=== PATIENT | female | born 1980 | race Caucasian/White ===

== ENCOUNTER → 2019-01-25 18:49 | Outpatient (CLI) | payer OTHER, SELFPAY | PROVIDERS: Visit Provider Physician Assistant | DX: N30.01 Acute cystitis with hematuria (principal) | CPT/HCPCS: 87086 ==

== ENCOUNTER → 2022-12-01 13:47 | Outpatient (CLI) | payer OTHER, SELFPAY | PROVIDERS: PCP Orthopaedic Surgery Foot and Ankle Surgery; Visit Provider Registered Nurse | DX: R30.0 Dysuria (principal) | CPT/HCPCS: 87077; 87086; 87186 ==

== ENCOUNTER → 2023-05-19 11:30 | Outpatient (CLI) | payer OTHER, SELFPAY ==
[2023-05-19 12:49] LABS: Influenza A - CEPHEID Flu A NEGATIVE (NEGATIVE); Influenza B - CEPHEID Flu B NEGATIVE (NEGATIVE); Respiratory Syncytial Virus Negative (Negative)
[2023-05-19 13:32] LABS: COVID-19 CEPHEID 4-PLEX PCR Negative (Negative)
== END ==
PROVIDERS: PCP Orthopaedic Surgery Foot and Ankle Surgery; Visit Provider Nurse Practitioner Family
DX: J06.9 Acute upper respiratory infection, unspecified (principal); J02.9 Acute pharyngitis, unspecified
CPT/HCPCS: 0241U; 87070

== ENCOUNTER 2024-04-27 08:41 | Emergency (ER) | payer OTHER, SELFPAY ==
[2024-04-27] VITALS (7 sets, daily range): BP systolic 116–129; BP diastolic 65–76; PULSE 67–81; RESP 14–30; TEMP 36.9–37.3; O2SAT 98–100; BMI 29.7
--- NOTE | 2024-04-27 08:48 | ED.GENADULT ---
HPI - General Adult General Chief complaint: Weakness Stated complaint: med reaction Time Seen by Provider: 04/27/24 08:42 History of Present Illness HPI narrative: 44-year-old woman history of depression, on hormone replacement therapy apparently was quite sleepy last night they went to bed around 9:00 a.m., apparently slept well when her went to check on her at 6:00 a.m. she seemed still more fatigued than usual. By 7:30 a.m. when he checked again she was concerning only fatigued to the point that she was unable to wake up enough to even carry on a conversation. He being came concerned enough that he brings her into the emergency department. He does bring in all of her medications which were reviewed. Both of them state that she has not taken any new medications, sleeping pills, alcohol has not been sick recently yesterday seemed like a normal day. Her notes that she had a significant drowsiness after Dilaudid with the previous hospital visit but otherwise has not had findings such as this. Patient can be roused is oriented to person time and place but does fall asleep again between sentences. She has in no obvious distress and has no localizing symptoms Related Data Home Medications Medication Instructions Recorded Confirmed atorvastatin PO 12/01/22 12/01/22 bupropion HCl PO 12/01/22 12/01/22 ergocalciferol (vitamin D2) 1,250 1,250 mcg PO 04/27/24 04/27/24 mcg (50,000 unit) capsule estradiol acetate 0.1 mg/24 hr vaginal [id number] 04/27/24 04/27/24 vaginal ring (Femring) flash glucose sensor (FreeStyle #1 ea 04/27/24 04/27/24 Rae 14 Day Sensor kit) progesterone micronized 100 mg 100 mg PO ONCE PM 04/27/24 04/27/24 capsule Previous Rx's Medication Instructions Recorded ondansetron 4 mg disintegrating 4 mg PO Q6-8H PRN nausea and 04/05/22 tablet vomiting #14 tabs Allergies Allergy/AdvReac Type Severity Reaction Status Date / Time hydromorphone [From Dilaudid] Allergy Severe quit Verified 04/27/24 09:03 breathing gatifloxacin [From Tequin] Allergy Intermediate bumps all Verified 04/27/24 09:03 over itchy Review of Systems Review of Systems Narrative: Pertinent positive and negative findings as per HPI Patient History Medical History Acne (~1993) Allergies (~2004) Anxiety (~2004) Migraines (~1999) Chicken pox (~1988) Painful menstrual periods (~1995) Heavy menstrual period (~2013) Endometriosis (~2013) Frequent UTI (~2004) Ataxia telangiectasia (SUMMER) (~1981) Hyperhidrosis (~1981) Hyperthyroidism (~2018) Surgical History Anesthesia History of dilation and curettage (~07/2015) History of surgery (~01/2018) History of removal of breast implant (~04/2017) History of breast implant (~09/2016) History of bilateral mastectomy (~04/2016) Family History Mother Diabetes mellitus Hyperlipidemia Mental health problem Grandfather Cancer Diabetes mellitus Grandmother Diabetes mellitus History of heart disease Mental health problem Alzheimer's disease Social History Smoking Status: Never smoker Smoking Status: Never smoker Exam Initial Vital Signs Initial Vital Signs: Vital Signs Pulse Rate 81 04/27/24 08:45 Respiratory Rate 30 H 04/27/24 08:45 Blood Pressure 129/76 04/27/24 08:45 Pulse Oximetry 98 04/27/24 08:45 General: Healthy appearing, in no acute distress. Extreme fatigue, falls asleep between sentences HEENT: Moist mucous membranes, normal sclera with reactive pupils, Respiratory: Lungs are clear to auscultation, no wheezing no rales no rhonchi. Full and symmetrical air movement Cardiac: Regular rate and rhythm no murmurs no bruits Abdomen: Soft, nontender, good bowel tones, no flank pain Skin: Face is slightly flushed remainder of skin is otherwise Warm and dry, no rashes Neurologic: Grossly neurologically intact with no obvious asymmetries or abnormalities beyond the exceptional fatigue Extremities: No trauma, well perfused Psych: Short sentences only as she falls asleep while she is speaking Course Orders Ordered: ED Orders 04/27/24 08:48 Respiratory Panel (Film Array) Stat 04/27/24 09:05 Complete Blood Count AUTO DIFF Stat Comprehensive Metabolic Panel Stat ETOH [Ethanol (ETOH)] Stat Lactate (Lactic Acid) Stat 04/27/24 09:07 CT head/brain wo con Stat 04/27/24 09:25 Urinalysis and Microscopic Stat urine tox [Urine Drug Screen, Rapid] Stat Discontinued Medications Sodium Chloride (Normal Saline 0.9%) 1,000 mls @ 1,000 mls/hr IV BOLUS ONE Stop: 04/27/24 09:51 Last Admin: 04/27/24 09:02 Dose: 1,000 mls/hr Documented By: VIOLETA Vital Signs Vital signs: Vital Signs - 8 hr 04/27/24 08:45 04/27/24 08:45 04/27/24 08:53 Temperature 99.2 F Pulse Rate 81 81 Respiratory Rate 30 H 18 Blood Pressure 129/76 129/76 Pulse Oximetry 98 100 Oxygen Delivery Method Room Air 04/27/24 09:00 04/27/24 09:00 04/27/24 09:24 Temperature Pulse Rate 74 73 Respiratory Rate 20 18 Blood Pressure 120/73 Pulse Oximetry 99 100 Oxygen Delivery Method 04/27/24 09:24 04/27/24 09:30 04/27/24 09:30 Temperature Pulse Rate 69 Respiratory Rate 15 Blood Pressure 128/69 127/68 Pulse Oximetry 100 Oxygen Delivery Method 04/27/24 10:00 04/27/24 10:00 Temperature Pulse Rate 68 Respiratory Rate 14 Blood Pressure 116/65 Pulse Oximetry 100 Oxygen Delivery Method Medical Decision Making Lab Data 04/27/24 09:05 04/27/24 09:05 Labs: Lab Results 04/27/24 04/27/24 04/27/24 Range/Units 08:48 09:05 09:25 WBC 11.0 (4.5-11.0) X10^3/uL RBC 4.25 (4.0-5.2) X10^6/uL Hgb 12.7 (12.0-16.0) g/dL Hct 37.2 (36-46) % MCV 87.7 (80-100) fL MCH 30.0 (26-34) PG MCHC 34.2 (30-36) % RDW 13.2 (11.6-14.8) % Plt Count 394 (150-400) X10^3/uL Neut % (Auto) 65.3 (50-75) % Lymph % (Auto) 28.5 (25-40) % [place] % (Auto) 4.8 (3-14) % Eos % (Auto) 0.9 L (2-4) % Baso % (Auto) 0.5 (0-2) % Neut # (Auto) 7200 H (0159-4459) /uL Lymph # (Auto) 3100 (7793-4131) /uL [place] # (Auto) 500 (0-900) /uL Eos # (Auto) 100 (0-450) /uL Baso # (Auto) 100 (0-100) /uL Sodium 137 (137-145) mmol/L Potassium 4.1 (3.4-5.1) mmol/L Chloride 107 (98-107) mmol/L Carbon Dioxide 22 (22-32) mmol/L BUN 14 (7-17) mg/dL Creatinine 0.96 (0.52-1.04) mg/dL Estimated GFR > 60 (>60) mL/min BUN/Creatinine Ratio 14.6 (6-22) Glucose 108 H (70-100) mg/dL Lactate 1.2 (0.7-2.1) mmol/L Calcium 9.5 (8.4-10.2) mg/dL Total Bilirubin 0.4 (0.2-1.3) mg/dL AST 26 (14-36) IU/L ALT 24 (<35) IU/L Alkaline Phosphatase 66 (38-126) U/L Total Protein 6.7 (6.3-8.2) g/dL Albumin 4.1 (3.5-5.0) g/dL Globulin 2.6 (1.7-4.1) g/dL Albumin/Globulin Ratio 1.6 (1.0-2.8) Urine Color Yellow Urine Appearance Clear Urine pH 7.0 (4.5-8.0) Ur Specific [place] <=1.005 (1.000-1.035) Urine Protein Negative (Negative) Urine Glucose (UA) Negative (Negative) g/dL Urine Ketones Negative (NEGATIVE) Urine Occult Blood 1+ H (Negative) Urine Nitrate Negative (Negative) Urine Bilirubin Negative (NEGATIVE) Urine Urobilinogen 0.2 (0.2) E.U./dL Ur Leukocyte Esterase Negative (NEGATIVE) Urine RBC 1-5/hpf (0-5/HPF) Urine WBC None seen (0-5/HPF) Ur Squamous Epith Cells None seen (0-5/HPF) Amorphous Sediment 1+ Urine Bacteria None seen (None) Ur Culture Indicated? Cult not indicated Vol Urine Centrifuged 10ml (spun) U Opiates 300ng/mL cut Negative (Negative) Ur Oxycodone Screen Negative (Negative) Urine Methadone Screen Negative (Negative) Ur Barbiturates Screen Negative (Negative) U Tricyclic Antidepress Negative (Negative) Ur Phencyclidine Scrn Negative (Negative) Ur Amphetamines Screen Negative (Negative) U Methamphetamines Scrn Negative (Negative) Ur MDMA Scrn (Ecstasy) Negative (Negative) U Benzodiazepines Scrn Negative (Negative) Urine Cocaine Screen Negative (Negative) U Marijuana (THC) Screen Negative (Negative) Urine Specific [place] (Normal) Ethyl Alcohol < 10 ( - 10) mg/dL Ur Creatinine (Normal) Chlamy pneumoniae PCR Not detected (Not Detect) Adenovirus (PCR) Not detected (Not Detect) B.parapertussis DNA PCR Not detected (Not Detecte) Coronavirus OC43 (PCR) Not detected (Not Detect) Coronavirus HKU1 (PCR) Not detected (Not Detect) Coronavirus 229E (PCR) Not detected (Not Detect) SARS-CoV-2 (PCR) Not detected (Not Detecte) Coronavirus NL63 (PCR) Not detected (Not Detect) Human Metapneumovir PCR Not detected (Not Detect) Influenza Type A (PCR) Not detected (Not Detect) Influenza Type B (PCR) Not detected (Not Detect) M. pneumoniae (PCR) Not detected (Not Detect) Parainfluenza 1 (PCR) Not detected (Not Detect) Parainfluenza 2 (PCR) Not detected (Not Detect) Parainfluenza 3 (PCR) Not detected (Not Detect) Parainfluenza 4 (PCR) Not detected (Not Detect) RSV (PCR) Not detected (Not Detect) Entero/Rhino (PCR) Not detected (Not Detect) 04/27/24 Range/Units 09:25 WBC (4.5-11.0) X10^3/uL RBC (4.0-5.2) X10^6/uL Hgb (12.0-16.0) g/dL Hct (36-46) % MCV (80-100) fL MCH (26-34) PG MCHC (30-36) % RDW (11.6-14.8) % Plt Count (150-400) X10^3/uL Neut % (Auto) (50-75) % Lymph % (Auto) (25-40) % [place] % (Auto) (3-14) % Eos % (Auto) (2-4) % Baso % (Auto) (0-2) % Neut # (Auto) (1540-8759) /uL Lymph # (Auto) (6990-6056) /uL [place] # (Auto) (0-900) /uL Eos # (Auto) (0-450) /uL Baso # (Auto) (0-100) /uL Sodium (137-145) mmol/L Potassium (3.4-5.1) mmol/L Chloride (98-107) mmol/L Carbon Dioxide (22-32) mmol/L BUN (7-17) mg/dL Creatinine (0.52-1.04) mg/dL Estimated GFR (>60) mL/min BUN/Creatinine Ratio (6-22) Glucose (70-100) mg/dL Lactate (0.7-2.1) mmol/L Calcium (8.4-10.2) mg/dL Total Bilirubin (0.2-1.3) mg/dL AST (14-36) IU/L ALT (<35) IU/L Alkaline Phosphatase (38-126) U/L Total Protein (6.3-8.2) g/dL Albumin (3.5-5.0) g/dL Globulin (1.7-4.1) g/dL Albumin/Globulin Ratio (1.0-2.8) Urine Color Urine Appearance Urine pH Normal (4.5-8.0) Ur Specific [place] (1.000-1.035) Urine Protein (Negative) Urine Glucose (UA) (Negative) g/dL Urine Ketones (NEGATIVE) Urine Occult Blood (Negative) Urine Nitrate (Negative) Urine Bilirubin (NEGATIVE) Urine Urobilinogen (0.2) E.U./dL Ur Leukocyte Esterase (NEGATIVE) Urine RBC (0-5/HPF) Urine WBC (0-5/HPF) Ur Squamous Epith Cells (0-5/HPF) Amorphous Sediment Urine Bacteria (None) Ur Culture Indicated? Vol Urine Centrifuged U Opiates 300ng/mL cut (Negative) Ur Oxycodone Screen (Negative) Urine Methadone Screen (Negative) Ur Barbiturates Screen (Negative) U Tricyclic Antidepress (Negative) Ur Phencyclidine Scrn (Negative) Ur Amphetamines Screen (Negative) U Methamphetamines Scrn (Negative) Ur MDMA Scrn (Ecstasy) (Negative) U Benzodiazepines Scrn (Negative) Urine Cocaine Screen (Negative) U Marijuana (THC) Screen (Negative) Urine Specific [place] Normal (Normal) Ethyl Alcohol ( - 10) mg/dL Ur Creatinine Normal (Normal) Chlamy pneumoniae PCR (Not Detect) Adenovirus (PCR) (Not Detect) B.parapertussis DNA PCR (Not Detecte) Coronavirus OC43 (PCR) (Not Detect) Coronavirus HKU1 (PCR) (Not Detect) Coronavirus 229E (PCR) (Not Detect) SARS-CoV-2 (PCR) (Not Detecte) Coronavirus NL63 (PCR) (Not Detect) Human Metapneumovir PCR (Not Detect) Influenza Type A (PCR) (Not Detect) Influenza Type B (PCR) (Not Detect) M. pneumoniae (PCR) (Not Detect) Parainfluenza 1 (PCR) (Not Detect) Parainfluenza 2 (PCR) (Not Detect) Parainfluenza 3 (PCR) (Not Detect) Parainfluenza 4 (PCR) (Not Detect) RSV (PCR) (Not Detect) Entero/Rhino (PCR) (Not Detect) Point of Care Testing Glucose POC 89 Point of care testing: Point of Care Testing Glucose POC 89 MDM Narrative Medical decision making narrative: CC: Unable to wake up Complicating co-morbidities: On hormone replacement therapy, history of hypothyroidism Data collected from: patient with the majority of information from her Differential considered: Adverse medication reaction, severe fatigue, infection, intracranial abnormality Exam documented above, pertinent findings include: Aside from fatigue, exam is entirely benign Lab Test results independently reviewed as above. Pertinent findings: CBC shows no significant abnormality Chemistries have no unusual findings Lactic is unremarkable Urinalysis shows minor occult blood no other findings Urine tox screen is negative Alcohol level is undetectable Respiratory panel shows free of detected viruses Imaging studies independently reviewed: CT of the head shows no acute abnormalities Discussion: Patient remains quite fatigued. Workup is entirely reassuring. No evidence of acute metabolic, infectious, neoplastic or other abnormalities that might explain her issues. CT scan of the head does not show subdural hematoma or other intracranial problems. Went over all of of her medications. She has been on progesterone 100 mg for at least a month. Recently got a new prescription filled from a mail-in pharmacy. Has taken 3 doses from the new prescription. Wondering if that may be part of the problem are there something different in this formulation of the progesterone. It is a generic version orange round capsule which is the description of with the pill should like light on the outside of the bottle. We will ask pharmacy for verification. With pill id programs I am not able to see this generic version of progesterone to confirm Discharge Plan Departure Patient Disposition: Home Clinical Impression: Excessive sleepiness Activity Restrictions/Additional Instructions: Thank you for coming in today I did not find a pathologic reason for why you are so sleepy this morning. I do not have good explanation for you but I am also not finding any evidence of infection, overwhelming infection, liver abnormalities kidney abnormalities there was no bleeding in your brain. Our pharmacy did confirm that the capsules that you have are a generic form of progesterone rather than some type of medication mix up Since this is the only change, I am going to suggest that you hold the progesterone for a week. It may be worse seeing if your primary doctor would give you a prescription that you can fill locally to try with a different formulation. We were able to confirm with the pharmacist that the pills that you have are in fact progesterone. If you find that you are getting worse or develop any new symptoms, please feel free to return to the emergency department for further evaluation. Prescriptions: No Action atorvastatin PO bupropion HCl PO ondansetron 4 mg tablet,disintegrating 4 mg PO Q6-8H PRN (Reason: nausea and vomiting) Qty: 14 0RF progesterone micronized 100 mg capsule 100 mg PO ONCE PM ergocalciferol (vitamin D2) 1,250 mcg (50,000 unit) capsule 1,250 mcg PO Femring 0.1 mg/24 hr ring vaginal [id number] (DME) FreeStyle Rae 14 Day Sensor Kit See Rx Instructions .ROUTE Q2W Qty: 1 Rx Instructions: As directed Referrals: Kendrick Oliveira MD [Primary Care Provider] - Stand Alone Forms: Patient Portal/API
[2024-04-27] MEDS: SODIUM CHLORIDE 0.9% 1,000 ML 1000 ML IV (09:02)
--- NOTE | 2024-04-27 09:07 | DI.CT.S_ITS ---
PROCEDURE: CT HEAD/BRAIN WO CON INDICATIONS: altered mental status TECHNIQUE: Noncontrast 4.5 mm thick angled axial sections acquired from the foramen magnum to the vertex, with coronal and sagittal reformats. For radiation dose reduction, the following was used: automated exposure control, adjustment of mA and/or kV according to patient size. COMPARISON: None. FINDINGS: Image quality: Diagnostic. CSF spaces: Basal cisterns are patent. No extra-axial fluid collections. Ventricles are normal in size and shape. Brain: No midline shift. No intracranial masses or hemorrhage. Arndt-white matter interface is normal. Skull and face: Calvarium and visualized facial bones are intact, without suspicious lesions. Sinuses: Visualized sinuses and mastoids are clear. IMPRESSION: No acute intracranial pathology. To the limits of this noncontrast study, no findings of intracranial masses or mass effect can be seen. Dictated by: Kody Templeton M.D. on 04/27/2024 at 8:40 Approved by: Kody Templeton M.D. on 04/27/2024 at 8:41
--- NOTE | 2024-04-27 09:16 | PC.NURSE ---
Increasing weakness; increasing lethargy starting last night. No new meds in the last two weeks.
[2024-04-27 09:23] LABS: Add Manual Diff / Slide Review NO; Basophils Absolute Auto 100 /uL (0-100); Basophils Percent Auto 0.5 % (0-2); Eosinophils Absolute Auto 100 /uL (0-450); Eosinophils Percent Auto 0.9 % (2-4); Hematocrit 37.2 % (36-46); Hemoglobin 12.7 g/dL (12.0-16.0); Lymphocytes Absolute Auto 3100 /uL (1100-4500); Lymphocytes Percent Auto 28.5 % (25-40); Mean Corpuscular HGB Conc 34.2 % (30-36); Mean Corpuscular Volume 87.7 fL (80-100); Monocytes Absolute Auto 500 /uL (0-900); Monocytes Percent Auto 4.8 % (3-14); Neutrophils Absolute Auto 7200 /uL (1500-7000); Neutrophils Percent Auto 65.3 % (50-75); Platelet Count 394 X10^3/uL (150-400); Red Blood Cell Count 4.25 X10^6/uL (4.0-5.2); Red Cell Distribution Width 13.2 % (11.6-14.8)
[2024-04-27 09:27] LABS: Lactate (Lactic Acid) 1.2 mmol/L (0.7-2.1)
[2024-04-27 09:28] LABS: Alanine Aminotransferase 24 IU/L (<35); Albumin 4.1 g/dL (3.5-5.0); Albumin Globulin Ratio 1.6 (1.0-2.8); Alkaline Phosphatase 66 U/L (38-126); Aspartate Aminotransferase 26 IU/L (14-36); BUN Creatinine Ratio 14.6 (6-22); Bilirubin Total 0.4 mg/dL (0.2-1.3); Blood Urea Nitrogen 14 mg/dL (7-17); Calcium 9.5 mg/dL (8.4-10.2); Carbon Dioxide 22 mmol/L (22-32); Chloride 107 mmol/L (98-107); Estimated Glomerular Filt Rate > 60 mL/min (>60); Ethanol (ETOH) < 10 mg/dL; Globulin 2.6 g/dL (1.7-4.1); Glucose 108 mg/dL (70-100); HEMOLYSIS < 15 (0-50); Potassium 4.1 mmol/L (3.4-5.1); Sodium 137 mmol/L (137-145); Total Protein 6.7 g/dL (6.3-8.2)
[2024-04-27 09:37] LABS: Appearance Urine UA CLEAR; Bilirubin Urine UA NEGATIVE (NEGATIVE); Color Urine UA YELLOW; Glucose Urine UA NEGATIVE (Negative); Ketones Urine UA NEGATIVE (NEGATIVE); Leukocyte Esterase Urine UA NEGATIVE (NEGATIVE); Nitrite Urine UA NEGATIVE (Negative); Occult Blood Urine UA 1+ (Negative); Protein Urine UA NEGATIVE (Negative); Specific Gravity Urine UA <=1.005 (1.000-1.035); Urobilinogen Urine UA 0.2 E.U./dL (0.2)
[2024-04-27 09:43] LABS: UR Morphine/Opiate cutoff 300 Negative (Negative); Ur Creatinine Normal (Normal); Ur Specific Gravity Normal (Normal); Urine Amphetamines Negative (Negative); Urine Barbiturates Negative (Negative); Urine Benzodiazepines Negative (Negative); Urine Cocaine Negative (Negative); Urine MDMA Negative (Negative); Urine Methadone Negative (Negative); Urine Methamphetamines Negative (Negative); Urine Oxycodone Negative (Negative); Urine Phencyclidine Negative (Negative); Urine Tetrahydrocannabinol Negative (Negative); Urine Tricyclic Antidepressant Negative (Negative); Urine pH Normal (Normal)
[2024-04-27 09:45] LABS: Amorphous Sediment Urine 1+; Bacteria Urine None Seen; Culture Indicated Urine Cult Not Indicated; RBC Urine 1-5/HPF (0-5/HPF); Squamous Epithelial Cell Urine None Seen (0-5/HPF); Urine Volume 10mL (spun); WBC Urine None Seen (0-5/HPF)
[2024-04-27 09:51] LABS: Adenovirus Not Detected (Not Detect); B. parapertussis Not Detected (Not Detecte); Bordetella pertussis Not Detected (Not Detect); Chlamydophila pneumoniae Not Detected (Not Detect); Coronavirus 229E Not Detected (Not Detect); Coronavirus HKU1 Not Detected (Not Detect); Coronavirus NL 63 Not Detected (Not Detect); Coronavirus OC43 Not Detected (Not Detect); Human Metapneumovirus Not Detected (Not Detect); Human Rhinovirus/Enterovirus Not Detected (Not Detect); Influenza A Not Detected (Not Detect); Influenza B Not Detected (Not Detect); Mycoplasma pneumoniae Not Detected (Not Detect); Parainfluenza Virus 1 Not Detected (Not Detect); Parainfluenza Virus 2 Not Detected (Not Detect); Parainfluenza Virus 3 Not Detected (Not Detect); Parainfluenza Virus 4 Not Detected (Not Detect); Respiratory Syncytial Virus Not Detected (Not Detect); SARS- CoV-2 Not Detected (Not Detecte)
== END 2024-04-27 11:04 | disposition home or self-care (01) ==
PROVIDERS: Emergency Provider Emergency Medicine; PCP Orthopaedic Surgery Foot and Ankle Surgery
DX: G47.10 Hypersomnia, unspecified (principal); R41.82 Altered mental status, unspecified; Z11.52 Encounter for screening for COVID-19
CPT/HCPCS: 36415; 70450; 80053; 80305; 80320; 81001; 82962; 83605; 85025; 87633; 96360; 99284